=== PATIENT | female | born 1955 | race Caucasian/White ===

== ENCOUNTER 2018-12-21 09:30 | Outpatient (RCR) | payer BC | END 2019-02-01 | LOC: PT | DX: H81.20 Vestibular neuronitis, unspecified ear (principal); R42 Dizziness and giddiness ==

== ENCOUNTER 2019-04-03 10:00 | Outpatient (RCR) | payer BC | END 2019-04-03 10:46 | disposition still patient (30) | LOC: PT 10:00 | DX: M25.512 Pain in left shoulder (principal) ==

== ENCOUNTER 2019-11-20 11:40 | Emergency (ER) | payer BC ==
[2019-11-20] MEDS ORDERED: LEVOTHYROXIN0.075 MG PO (11:48)
[2019-11-20] MEDS ORDERED: WELLBUTRIN SR150 M2 PO (11:48)
[2019-11-20] MEDS ORDERED: MELOXICAM15 MG PO (11:49)
[2019-11-20 12:40] VITALS: BP 180/75
== END 2019-11-20 12:40 | disposition home or self-care (01) ==
LOC: ED 11:40
DX: S61.210A Laceration without foreign body of right index finger without damage to nail, initial encounter (principal); Z23 Encounter for immunization; W29.0XXA Contact with powered kitchen appliance, initial encounter; Y92.009 Unspecified place in unspecified non-institutional (private) residence as the place of occurrence of the external cause
CPT/HCPCS: 90715

== ENCOUNTER → 2019-11-29 | Outpatient (CLI) | payer BC ==
[2019-11-20 12:40] VITALS: BP 180/75
[~2019-11-29] MED LIST: LEVOTHYROXIN0.075 MG PO; MELOXICAM15 MG PO; WELLBUTRIN SR150 M2 PO
== END ==
LOC: AMSURD 10:21
DX: Z48.02 Encounter for removal of sutures (principal)